=== PATIENT | female | born 1965 | race Caucasian/White ===

== ENCOUNTER 2017-12-13 07:10 | Emergency (ER) | payer OTHER, SELFPAY ==
[2017-12-13] MEDS ORDERED: Ketorolac Tromethamine 30 MG/ML VIAL ONE (07:46)
[2017-12-13] MEDS ORDERED: Fentanyl 100 MCG/2 ML VIAL ONE (08:34)
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
[2017-12-13] MEDS ORDERED: Acetaminophen 325 MG TAB ONE (10:08)
== END 2017-12-13 10:19 | disposition home or self-care (01) ==
LOC: ERS 07:10
DX: T14.8XXA Other injury of unspecified body region, initial encounter (principal); F17.210 Nicotine dependence, cigarettes, uncomplicated; V40.9XXA Unspecified car occupant injured in collision with pedestrian or animal in traffic accident, initial encounter
CPT/HCPCS: 71046; 72125; 96374; 96375; J1885; J3010

== ENCOUNTER 2018-03-23 12:22 | Emergency (ER) | payer OTHER, SELFPAY ==
[2018-03-23 13:08] LABS: #Basophils 0.1 thou/uL (0.0-0.2); #Lymphocytes 2.8 thou/uL (1.20-3.40); #Monocytes 0.8 thou/uL (0.11-0.59); %Basophils 0.6 % (0.0-1.0); %Eosinophils 0.4 % (0.0-10.0); %Lymphocytes 26.3 % (21.0-51.0); %Monocytes 7.4 % (0.0-10.0); %Neutrophils 65.3 % (42.0-75.0); Hemoglobin 13.5 g/dL (12.0-16.0); Mean Corpuscular HGB CONC 32.6 g/dL (32.0-36.0); Mean Corpuscular Hemoglobin 30.7 pg (27.0-31.0); Mean Corpuscular Volume 94.1 fL (78.0-98.0); Mean Platelet Volume 7.3 fL (7.4-10.4); Platelet Count 280 thou/uL (130-400); RBC Distribution Width 11.3 % (11.5-14.5); Red Blood Cell (RBC) Count 4.39 mill/uL (4.20-5.40); White Blood Cell (WBC) Count 10.7 thou/uL (4.8-10.8)
--- NOTE | 2018-03-23 13:15 | RAD ---
CHEST ONE VIEW: HISTORY: Chest pain. COMPARISON: Chest radiograph from 12/13/2017. FINDINGS: The lungs are clear. No pneumothorax or effusion. The cardiac silhouette and mediastinal contours a re normal. A well defined nodule is present over the right lung base, likely a calcified granuloma. IMPRESSION: Likely calcified granuloma in the right lung base. No acute intrathoracic abnormality. POS: [facility]
[2018-03-23] MEDS ORDERED: diphenhydrAMINE 50 MG/ML VIAL ONE (13:37)
[2018-03-23] MEDS ORDERED: Acetaminophen 500 MG TAB ONE (13:37)
[2018-03-23] MEDS ORDERED: Metoclopramide HCl 10 MG/2 ML VIAL ONE (13:37)
--- NOTE | 2018-03-23 13:37 | CT ---
NONCONTRAST CT HEAD: DATE: 03/23/2018. HISTORY: Headache and chest tightness. Blurry vision and left arm numbness and pain. COMPARISON: None available. FINDINGS: There is no evidence of a hemorrhage, acute infarction, mass effect, or midline shift. Ventricular s ystem is normal in size, shape, and position. Visualized paranasal sinuses and mastoid air cells are clear. Calvarial structures are intact. IMPRESSION: No acute intracranial abnormality demonstrated. POS: [facility]
[2018-03-23 13:38] LABS: ALT (SGPT) 14 U/L (8-55); AST (SGOT) 22 U/L (5-34); Albumin 4.3 g/dL (3.5-5.0); Alkaline Phosphatase 55 U/L (40-150); Anion Gap 15 mmol/L (10-20); BUN (Urea Nitrogen) 11 mg/dL (7.0-18.7); Bilirubin, Total 0.3 mg/dL (0.2-1.2); Calc. Creatinine Clearance 0 mL/min (70-130); Calcium 9.3 mg/dL (7.8-10.44); Carbon Dioxide 21 mmol/L (22-29); Chloride 107 mmol/L (98-107); Estimated GFR-MDRD Greater than 90; Globulin 2.8 g/dL (2.4-3.5); Glucose 100 mg/dL (70-105); Potassium 4.2 mmol/L (3.5-5.1); Protein, Total 7.1 g/dL (6.0-8.3); Sodium 139 mmol/L (136-145)
[2018-03-23] MEDS ORDERED: Ketorolac Tromethamine 30 MG/ML VIAL ONE (16:04)
[2018-03-23 16:35] LABS: Troponin I Less than 0.010 ng/mL (< 0.028)
== END 2018-03-23 17:37 | disposition home or self-care (01) ==
LOC: ERS 12:22
DX: R07.89 Other chest pain (principal); R51 Headache; F17.210 Nicotine dependence, cigarettes, uncomplicated
CPT/HCPCS: 36415; 70450; 71045; 80053; 84484; 85025; 93005; 96365; 96366; 96375; J1200; J1885; J2765